=== PATIENT | female | born 1960 | race Caucasian/White ===

== ENCOUNTER 2018-07-29 18:40 | Emergency (ER) | payer OTHER ==
[2018-07-29] MEDS ORDERED: ONDANSETRON 4 MG/2 ML VIAL ONE (18:45)
[2018-07-29] MEDS ORDERED: ONDANSETRON 4 MG/2 ML VIAL IVP ONE (18:50)
[2018-07-29] MEDS ORDERED: NS 1,000 ML IV ONE (18:55)
--- NOTE | 2018-07-29 18:56 | EDPHY ---
H & P Time Seen by Provider: 07/29/18 18:54 HPI/ROS: CHIEF COMPLAINT: Alcohol intoxication HISTORY OF PRESENT ILLNESS: 57-year-old female with no significant past medical history brought here by EMS after she was found intoxicated at a bar. EMS reports emesis multiple times on route. Patient reports that she and her boyfriend were drinking"too much alcohol". She denies any other drug use. She denies head injury or abdominal pain, chest pain, shortness of breath. REVIEW OF SYSTEMS: Constitutional: No fever, no chills. Eyes: No discharge. ENT: No sore throat. Cardiovascular: No chest pain, no palpitations. Respiratory: No cough, no shortness of breath. Gastrointestinal: No abdominal pain, + vomiting. Genitourinary: No hematuria. Musculoskeletal: No back pain. Skin: No rashes. Neurological: No headache. Smoking Status: Never smoked Physical Exam: General Appearance: Alert and no distress. Eyes: Pupils equal and round no injection. Respiratory: Chest is nontender, lungs are clear to auscultation. Cardiac: regular rate and rhythm. Gastrointestinal: Abdomen is soft and nontender, no masses, bowel sounds normal. Musculoskeletal: Neck is supple and nontender. Extremities have full range of motion and are nontender. Skin: No rashes or lesions. Constitutional: Initial Vital Signs Temperature (C) 36.9 C 07/29/18 18:50 Heart Rate 105 H 07/29/18 18:50 Respiratory Rate 18 07/29/18 18:50 Blood Pressure 135/95 H 07/29/18 18:50 O2 Sat (%) 96 07/29/18 18:50 O2 Delivery Mode Room Air Allergies/Adverse Reactions: No Known Allergies Allergy (Unverified 02/18/12 15:49) Home Medications: Medication Instructions Recorded AZITHROMYCIN [Z-PACK] 250 mg PO DAILY #1 packet 02/18/12 No Medications [NO HOME 1 ea MISC 02/18/12 MEDICATIONS] Medical Decision Making ED Course/Re-evaluation: Patient alert and oriented though clearly intoxicated and smells of alcohol. She was allowed to eat and drink in the emergency room and was given IV fluids and Zofran and there is no emesis or any evidence of altered mentation. She was picked up by her daughter will watch after this evening. - Data Points Medications Given: Discontinued Medications Sodium Chloride (Ns) 1,000 mls @ 0 mls/hr IV EDNOW ONE; Wide Open PRN Reason: Protocol Stop: 07/29/18 18:56 Last Admin: 07/29/18 19:05 Dose: 1,000 mls Ondansetron HCl (Zofran) 4 mg IVP EDNOW ONE Stop: 07/29/18 18:51 Last Admin: 07/29/18 19:06 Dose: 4 mg Departure - Departure Disposition: Home, Routine, Self-Care Clinical Impression: Alcohol intoxication Condition: Good Instructions: Abuse of Alcohol (ED) Referrals: Patient,NotPresent [Unknown] - As per Instructions [facility],. [Clinic] - As per Instructions
[2018-07-29 23:36] VITALS: BP 128/78
== END 2018-07-29 22:45 | disposition home or self-care (01) ==
LOC: EDUNIT#
DX: F10.920 Alcohol use, unspecified with intoxication, uncomplicated (principal); E86.9 Volume depletion, unspecified
CPT/HCPCS: 96374; J2405